=== PATIENT | male | born 1960 | race Caucasian/White ===

== ENCOUNTER → 2020-12-14 | Outpatient (CLI) | payer MEDICARE, OTHER ==
--- NOTE | 2020-12-14 13:49 | XR ---
EXAMINATION TYPE: XR ribs LT w pa chest xray DATE OF EXAM: 12/14/2020 COMPARISON: NONE HISTORY: Pain TECHNIQUE: Frontal view of the chest and 5 views of the left ribs are submitted. FINDINGS: Rib cage is intact. No acute displaced rib fracture identified. Lungs are clear. Heart size normal. No consolidation, pleural effusion or pneumothorax IMPRESSION: No acute displaced rib fracture.
== END | disposition home or self-care (01) ==
LOC: RADXRYALE 11:13
PROVIDERS: ATTEND Family Medicine
DX: R07.9 Chest pain, unspecified (principal)